=== PATIENT | female | born 1995 | race Caucasian/White ===

== ENCOUNTER 2018-11-11 06:36 | Emergency (ER) | payer MEDICAID, OTHER ==
[~2018-11-11] VITALS: Ht 154.9 cm; Wt 72.6 kg
[~2018-11-11 06:36] MED LIST: CIPR500T78 PO; HYOS0.1216 PO; NORG1TAB15 PO; ONDA-42 SL; PROP1TAB PO
[2018-11-11] MEDS ORDERED: NS IV 1000 ML 1,000 ML IV SCH (07:15)
[2018-11-11] MEDS ORDERED: KETOROLAC 30 MG/ML VIAL IVP PRN (07:15)
[2018-11-11] MEDS ORDERED: ONDANSETRON 4 MG/2 ML (SDV) Z0FRAN IVP ONE (07:15)
--- NOTE | 2018-11-11 07:18 | ED Back Pain ---
General Chief Complaint: Back Problems Stated Complaint: SEVERE KIDNEY PAIN Nursing Triage Note: PT AMB TO ROOM #5 W/O DIFFICULTY. A&OX4. C/O BILAT FLANK PAIN. REPORTS @ APPROX 0430 ON THIS DAY, SHE WAS AWOKEN WITH SYMTPOMS. REPORTS NAUSEA AND BURNING UPON URINATION. DENIES FEVER OR CHILLS. Nursing Sepsis Screen: No Definite Risk Source of Information: Patient Exam Limitations: No Limitations History of Present Illness Date Seen by Provider: Nov 11, 2018 Time Seen by Provider: 07:16 Initial Comments This 23-year-old white female presents with a complaint of severe flank pain that awoke her from sleep this morning at 430. Patient denies fever, chill, hematuria, nausea vomiting or diarrhea, chest pain or shortness of breath, associated headache stiff neck or photophobia, or similar episode in the past. The patient has had frequent urinary tract infections. There is a family history of kidney stones. The patient's pain is poorly localized in the flank, it is severe, and sharp in nature. Allergies and Home Medications Allergies Coded Allergies: Sulfa (Sulfonamide Antibiotics) (Unverified Allergy, Unknown, 10/05/14) pseudoephedrine (Unverified Allergy, Unknown, 10/05/14) Home Medications Ciprofloxacin HCl 500 Mg Tablet, 500 MG PO BID, (Reported) Hyoscyamine Sulfate 0.125 Mg Tab, 1-2 EACH PO Q4HR PRN PRN for CRAMPS Prescribed by: NAKIA OSBORNE on 10/05/14 172 Norgestimate-Ethinyl Estradiol 1 Each Tablet, 1 EACH PO DAILY, (Reported) Ondansetron Hcl 4 Mg Tab, 4 MG SL Q4H FOR NAUSEA AND VOMITING Prescribed by: NAKIA OSBORNE on 10/05/14 172 Propranolol/Hydrochlorothiazid 1 Each Tablet, 1 EACH PO BID, (Reported) Patient Home Medication List Home Medication List Reviewed: Yes Review of Systems Constitutional: No chills, No fever EENTM: No hearing loss, No vision loss Respiratory: No cough Cardiovascular: No chest pain Gastrointestinal: No diarrhea; nausea; No vomiting Genitourinary: see HPI, other (flank pain) : No Musculoskeletal: back pain Skin: No rash Psychiatric/Neurological: No Symptoms Reported Past Ubnogka-Iyfmaf-Xqtwao Hx Past Med/Social Hx: Reviewed Nursing Past Med/Soc Hx Patient Social History Alcohol Use: Denies Use Recreational Drug Use: No Smoking Status: Never a Smoker 2nd Hand Smoke Exposure: No Recent Foreign Travel: No Contact w/Someone Who Travel: No Recent Infectious Disease Expo: No Seasonal Allergies Seasonal Allergies: No Past Medical History Surgeries: No Respiratory: No Cardiac: No Neurological: No Reproductive Disorders: No Sexually Transmitted Disease: No HIV/AIDS: No Gastrointestinal: No Musculoskeletal: No Endocrine: No Cancer: No Psychosocial: No Integumentary: No Blood Disorders: No Adverse Reaction/Blood Tranf: No Physical Exam Vital Signs Vital Signs - First Documented 11/11/18 06:47 Temp 98.8 Pulse 98 Resp 16 B/P (MAP) 118/81 (93) Pulse Ox 98 O2 Delivery Room Air Capillary Refill : Less Than 3 Seconds Height, Weight, BMI Height: 5'1.00" Weight: 160lbs. oz. 72.335778dd; BMI Method:Stated General Appearance: WD/WN, Mild Distress HEENT: Normal ENT Inspection Neck: Normal Inspection Cardiovascular: Regular Rate, Rhythm Respiratory: Lungs Clear Gastrointestinal: Normal Bowel Sounds Extremity: Normal Inspection, Normal Range of Motion Neurologic/Psychiatric: Oriented x3, No Motor/Sensory Deficits, Normal Mood/ Affect Skin: Normal Color, Warm/Dry Progress/Results/Core Measures Results/Orders Lab Results Laboratory Tests Test 11/11/18 07:19 11/11/18 07:20 Range/Units Urine Color YELLOW Urine Clarity SLIGHTLY CLOUDY Urine pH 5 5-9 Urine Specific [place] 1.025 H 1.016-1.022 Urine Protein NEGATIVE NEGATIVE Urine Glucose (UA) NEGATIVE NEGATIVE Urine Ketones 2+ H NEGATIVE Urine Nitrite POSITIVE H NEGATIVE Urine Bilirubin NEGATIVE NEGATIVE Urine Urobilinogen NORMAL NORMAL MG/DL Urine Leukocyte Esterase 1+ H NEGATIVE Urine RBC (Auto) 1+ H NEGATIVE Urine RBC 0-2 /HPF Urine WBC 5-10 H /HPF Urine Squamous Epithelial Cells 0-2 /HPF Urine Crystals NONE /LPF Urine Bacteria LARGE H /HPF Urine Casts NONE /LPF Urine Mucus NEGATIVE /LPF Urine Culture Indicated YES Urine Test NEGATIVE NEGATIVE White Blood Count 5.6 4.3-11.0 10^3/uL Red Blood Count 4.27 L 4.35-5.85 10^6/uL Hemoglobin 13.1 11.5-16.0 G/DL Hematocrit 39 35-52 % Mean Corpuscular Volume 91 80-99 FL Mean Corpuscular Hemoglobin 31 25-34 PG Mean Corpuscular Hemoglobin Concent 34 32-36 G/DL Red Cell Distribution Width 12.5 10.0-14.5 % Platelet Count 225 130-400 10^3/uL Mean Platelet Volume 9.4 7.4-10.4 FL Neutrophils (%) (Auto) 57 42-75 % Lymphocytes (%) (Auto) 24 12-44 % Monocytes (%) (Auto) 16 H 0-12 % Eosinophils (%) (Auto) 3 0-10 % Basophils (%) (Auto) 0 0-10 % Neutrophils # (Auto) 3.2 1.8-7.8 X 10^3 Lymphocytes # (Auto) 1.3 1.0-4.0 X 10^3 Monocytes # (Auto) 0.9 0.0-1.0 X 10^3 Eosinophils # (Auto) 0.2 0.0-0.3 10^3/uL Basophils # (Auto) 0.0 0.0-0.1 10^3/uL Sodium Level 140 135-145 MMOL/L Potassium Level 4.0 3.6-5.0 MMOL/L Chloride Level 106 98-107 MMOL/L Carbon Dioxide Level 20 L 21-32 MMOL/L Anion Gap 14 5-14 MMOL/L Blood Urea Nitrogen 14 7-18 MG/DL Creatinine 0.77 0.60-1.30 MG/DL Estimat Glomerular Filtration Rate > 60 BUN/Creatinine Ratio 18 Glucose Level 95 70-105 MG/DL Calcium Level 9.7 8.5-10.1 MG/DL Corrected Calcium 8.5-10.1 MG/DL Total Bilirubin 0.6 0.1-1.0 MG/DL Aspartate Amino Transf (AST/SGOT) 17 5-34 U/L Alanine Aminotransferase (ALT/SGPT) 18 0-55 U/L Alkaline Phosphatase 113 40-136 U/L Total Protein 7.5 6.4-8.2 GM/DL Albumin 4.6 H 3.2-4.5 GM/DL Lipase 35 8-78 U/L My Orders Orders - PARADISE WEBSTER MD Cbc With Automated Diff (11/11/18 07:05) Ua Culture If Indicated (11/11/18 07:05) Comprehensive Metabolic Panel (11/11/18 07:05) Lipase (11/11/18 07:05) Ct Abd/Pelvis Wo(Kidney Stone) (11/11/18 07:05) Ns Iv 1000 Ml (Sodium Chloride 0.9%) (11/11/18 07:15) Ondansetron Injection (Zofran Injectio (11/11/18 07:15) Ketorolac Injection (Toradol Injection) (11/11/18 07:15) Hcg,Qualitative Urine (11/11/18 07:20) Urine Culture (11/11/18 07:19) Us Non Ob Transvaginal [id number] (11/11/18 08:16) Medications Given in ED Current Medications Medications Dose Ordered Sig/Mendoza Route Start Time Stop Time Status Last Admin Dose Admin Ketorolac Tromethamine 30 mg Q6H PRN IVP 11/11/18 07:15 11/16/18 07:14 11/11/18 07:20 30 MG Ondansetron HCl 4 mg ONCE ONCE IVP 11/11/18 07:15 11/11/18 07:16 DC 11/11/18 07:20 4 MG Vital Signs/I&O 11/11/18 06:47 Temp 98.8 Pulse 98 Resp 16 B/P (MAP) 118/81 (93) Pulse Ox 98 O2 Delivery Room Air Blood Pressure Mean: 93 Progress Progress Note : Time: 09:08 Progress Note The patient's workup demonstrated a large ovarian cyst. There was no evidence of kidney stone or urinary tract infection. Ultrasound demonstrated a large right ovarian cyst. Patient's pain was significantly improved with IV Toradol. Her nausea was treated with Zofran. 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 I asked her to return in the interim if she had a problems or questions. Departure Impression Primary Impression: Ovarian cyst Qualified Codes: N83.201 - Unspecified ovarian cyst, right side Disposition: 01 HOME, SELF-CARE Condition: Improved Departure-Patient Inst. Decision time for Depature: 09:09 Referrals: WADE HERRERA MD (PCP) Primary Care Physician Patient Instructions: Ovarian Cyst (DC) Add. Discharge Instructions: Toradol for pain. Zofran for nausea. Follow-up with your caregivers on Wednesday for further evaluation. Return if any problems or questions. All discharge instructions reviewed with patient and/or family. Voiced understanding. Scripts Ondansetron (Ondansetron Odt) 4 Mg Tab.rapdis 4 MG PO every 3 hours for Nausea for 7 Days, #20 TAB Prov: PARADISE WEBSTER MD 11/11/18 Ketorolac Tromethamine (Ketorolac Tromethamine) 10 Mg Tablet 10 MG PO q6 PRN for PAIN-MODERATE TO SEVERE, #20 TAB Prov: PARADISE WEBSTER MD 11/11/18 PARADISE WEBSTER MD Nov 11, 2018 07:18
[2018-11-11 07:31] LABS: BASOPHILS % (AUTO) 0 % (0-10); EOSINOPHILS # (AUTO) 0.2 10^3/uL (0.0-0.3); EOSINOPHILS % (AUTO) 3 % (0-10); HEMATOCRIT 39 % (35-52); HEMOGLOBIN 13.1 G/DL (11.5-16.0); LYMPHOCYTES # (AUTO) 1.3 X 10^3 (1.0-4.0); LYMPHOCYTES % (AUTO) 24 % (12-44); MEAN CORPUSCULAR HEMOGLOBIN 31 PG (25-34); MEAN CORPUSCULAR HGB CONC 34 G/DL (32-36); MEAN CORPUSCULAR VOLUME 91 FL (80-99); MEAN PLATELET VOLUME 9.4 FL (7.4-10.4); MONOCYTES # (AUTO) 0.9 X 10^3 (0.0-1.0); MONOCYTES % (AUTO) 16 % (0-12); NEUTROPHILS # (AUTO) 3.2 X 10^3 (1.8-7.8); NEUTROPHILS % (AUTO) 57 % (42-75); PLATELET COUNT 225 10^3/uL (130-400); RED CELL DISTRIBUTION WIDTH 12.5 % (10.0-14.5); WHITE BLOOD COUNT 5.6 10^3/uL (4.3-11.0)
[2018-11-11 07:51] LABS: ALANINE AMINOTRANSFERASE 18 U/L (0-55); ALBUMIN 4.6 GM/DL (3.2-4.5); ALKALINE PHOSPHATASE 113 U/L (40-136); BILIRUBIN,TOTAL 0.6 MG/DL (0.1-1.0); BUN/CREATININE RATIO 18; CALCIUM 9.7 MG/DL (8.5-10.1); CARBON DIOXIDE 20 MMOL/L (21-32); CHLORIDE 106 MMOL/L (98-107); CREATININE SERUM 0.77 MG/DL (0.60-1.30); GFR ESTIMATED > 60; GLUCOSE 95 MG/DL (70-105); LIPASE 35 U/L (8-78); SODIUM 140 MMOL/L (135-145); TOTAL PROTEIN 7.5 GM/DL (6.4-8.2)
--- NOTE | 2018-11-11 07:58 | Diagnostic Imaging Report ---
PROCEDURE: CT urinary tract, rule out kidney stone. TECHNIQUE: Multiple contiguous axial images were obtained through the abdomen and pelvis without the use of intravenous contrast. Auto Exposure Controls were utilized during the CT exam to meet ALARA standards for radiation dose reduction. INDICATION: Bilateral flank pain, burning on urination. COMPARISON: 10/05/2014. FINDINGS: The lung bases are clear. The heart is normal in size. The liver demonstrates no focal lesions. The spleen appears normal. The pancreas is normal. The adrenal glands are normal. The kidneys demonstrate no focal calculi. No hydronephrosis is seen. The bowel loops are nondistended without evidence of obstruction. The appendix appears normal. There are a few mildly prominent lymph nodes in the right lower quadrant of the abdomen. There is moderate stool in the colon. There is a multiseptated cystic mass in the right pelvis measuring 6.7 x 6.3 cm in size. This is most likely ovarian in origin. No acute osseous abnormality is seen. No free fluid or free air seen. IMPRESSION: 1. Multiseptated cystic mass in the right pelvis, most likely ovarian in origin. This could represent a tubo-ovarian abscess or possibly a neoplastic process. Please correlate with clinical findings. Ultrasound may be of benefit for further characterization. 2. Moderate stool in the colon, please correlate with a history of constipation. Dictated by: Dictated on workstation # [id number]
[2018-11-11 08:10] LABS: BILIRUBIN,URINE NEGATIVE (NEGATIVE); CLARITY,URINE SLIGHTLY CLOUDY; COLOR,URINE YELLOW; GLUCOSE, URINE (UA) NEGATIVE (NEGATIVE); KETONES,URINE 2+ (NEGATIVE); LEUKOCYTE ESTERASE ,URINE 1+ (NEGATIVE); NITRITE,URINE POSITIVE (NEGATIVE); PH,URINE 5 (5-9); PROTEIN,URINE NEGATIVE (NEGATIVE); UROBILINOGEN,URINE NORMAL (NORMAL)
[2018-11-11 08:19] LABS: BACTERIA,URINE LARGE /HPF; RBC,URINE 0-2 /HPF; SQUAMOUS EPITHELIAL CELL,UR 0-2 /HPF
[2018-11-11] MEDS ORDERED: KETO10TA PO (09:14)
[2018-11-11] MEDS ORDERED: ONDA4TAB11 PO (09:14)
--- NOTE | 2018-11-11 09:34 | Diagnostic Imaging Report ---
INDICATION: Bilateral flank pain. Burning with urination. COMPARISON: CT abdomen and pelvis from earlier the same day TECHNIQUE: Transvaginal sonogram was performed. FINDINGS: The uterus is anteverted and measures 8.3 cm in length x 5.3 cm in AP dimension x 5.9 cm transversely. No focal myometrial mass-type lesions are seen. Endometrial stripe is diffusely hyperechoic and measures within normal limits for size at 8 mm in thickness. Visualized portions of the cervix are unremarkable. Left ovary measures 3.1 x 2.8 x 1.3 cm and demonstrates multiple small anechoic follicles. Right kidney in contrast measures 6.5 x 6.8 x 5.9 cm. Multiple anechoic cysts and follicles are identified involving the right ovary. Largest measures 4.2 x 2.5 x 4.4 cm Additionally, there is a complex heterogeneous right ovarian lesion that measures 2.7 x 3.9 x 3 cm. Color flow images failed to show evidence of internal vascularity. No adnexal masses are seen. There is no free fluid. IMPRESSION: 1. Complex right ovarian lesion, which is felt to most likely represent hemorrhagic cyst. Followup in 2 cycles is recommended to ensure adequate interval resolution. 2. Multiple other benign anechoic right ovarian cysts are also noted. 3. Normal appearance of the uterus and left ovary. Dictated by: Dictated on workstation # [id number]
[2018-11-11 09:49] VITALS: BP 110/71
--- OUTSIDE RECORDS SUMMARY | 2018-11-11 11:24 | XMS REPORT | Continuity of Care Document ---
Author Organization Unknown Address Unknown Allergies Active Description Code Type Severity Reaction Onset Reported/Identified Relationship to Patient Clinical Status Yes pseudoephedrine [id number] Drug Allergy Unknown N/A 10/05/2014 Yes Sulfa (Sulfonamide Antibiotics) [id number] Drug Allergy Unknown N/A 2014 Medications There is no data. Problems Date Dx Coded Attending Type Code Diagnosis Diagnosed By 10/05/2014 Ot 558.9 NONINF GASTROENTERIT NEC 10/05/2014 Ot 787.03 VOMITING ALONE Procedures There is no data. Results Test Result Range Urine beta human chorionic gonadotropin (hCG) measurement - 11/11/18 07:19 Urine beta human chorionic gonadotropin (hCG) measurement NEGATIVE NEGATIVE Complete blood count (CBC) with automated white blood cell (WBC) differential - 11/11/18 07:20 Blood leukocytes automated count (number/volume) 5.6 10*3/uL 4.3-11.0 Blood erythrocytes automated count (number/volume) 4.27 10*6/uL 4.35-5.85 Venous blood hemoglobin measurement (mass/volume) 13.1 g/dL 11.5-16.0 Blood hematocrit (volume fraction) 39 % 35-52 Automated erythrocyte mean corpuscular volume 91 [foz_us] 80-99 Automated erythrocyte mean corpuscular hemoglobin (mass per erythrocyte) 31 pg 25-34 Automated erythrocyte mean corpuscular hemoglobin concentration measurement ( mass/volume) 34 g/dL 32-36 Automated erythrocyte distribution width ratio 12.5 % 10.0-14.5 Automated blood platelet count (count/volume) 225 10*3/uL 130-400 Automated blood platelet mean volume measurement 9.4 [foz_us] 7.4-10.4 Automated blood neutrophils/100 leukocytes 57 % 42-75 Automated blood lymphocytes/100 leukocytes 24 % 12-44 Blood monocytes/100 leukocytes 16 % 0-12 Automated blood eosinophils/100 leukocytes 3 % 0-10 Automated blood basophils/100 leukocytes 0 % 0-10 Blood neutrophils automated count (number/volume) 3.2 10*3 1.8-7.8 Blood lymphocytes automated count (number/volume) 1.3 10*3 1.0-4.0 Blood monocytes automated count (number/volume) 0.9 10*3 0.0-1.0 Automated eosinophil count 0.2 10*3/uL 0.0-0.3 Automated blood basophil count (count/volume) 0.0 10*3/uL 0.0-0.1 Comprehensive metabolic panel - 11/11/18 07:20 Serum or plasma sodium measurement (moles/volume) 140 mmol/L 135-145 Serum or plasma potassium measurement (moles/volume) 4.0 mmol/L 3.6-5.0 Serum or plasma chloride measurement (moles/volume) 106 mmol/L 98-107 Carbon dioxide 20 mmol/L 21-32 Serum or plasma anion gap determination (moles/volume) 14 mmol/L 5-14 Serum or plasma urea nitrogen measurement (mass/volume) 14 mg/dL 7-18 Serum or plasma creatinine measurement (mass/volume) 0.77 mg/dL 0.60-1.30 Serum or plasma urea nitrogen/creatinine mass ratio 18 NRG Serum or plasma creatinine measurement with calculation of estimated glomerular filtration rate > NRG Serum or plasma glucose measurement (mass/volume) 95 mg/dL 70-105 Serum or plasma calcium measurement (mass/volume) 9.7 mg/dL 8.5-10.1 Serum or plasma total bilirubin measurement (mass/volume) 0.6 mg/dL 0.1-1.0 Serum or plasma alkaline phosphatase measurement (enzymatic activity/volume) 113 U/L 40-136 Serum or plasma aspartate aminotransferase measurement (enzymatic activity/ volume) 17 U/L 5-34 Serum or plasma alanine aminotransferase measurement (enzymatic activity/volume ) 18 U/L 0-55 Serum or plasma protein measurement (mass/volume) 7.5 g/dL 6.4-8.2 Serum or plasma albumin measurement (mass/volume) 4.6 g/dL 3.2-4.5 Lipase - 11/11/18 07:20 Lipase 35 U/L 8-78 Encounters ACCT No. Visit Date/Time Discharge Status Pt. Type Provider Facility Loc./Unit Complaint [id number] 10/24/2014 10:15:28 10/24/2014 23:59:59 CLS Outpatient Latia Frye [id number] 11/11/2018 06:39:00 ACT Emergency ELEANOR GONZALEZ, PARAD[facility] ER SEVERE KIDNEY PAIN [id number] 10/05/2014 15:49:00 Document Registration
== END 2018-11-11 09:40 | disposition home or self-care (01) ==
LOC: EDUNIT# 06:36 → ER 06:39
DX: N83.201 Unspecified ovarian cyst, right side (principal); Z88.2 Allergy status to sulfonamides; Z88.8 Allergy status to other drugs, medicaments and biological substances
CPT/HCPCS: 36415; 74176; 76830; 80053; 81000; 83690; 84703; 85025; 87077; 87088; 87186

== ENCOUNTER 2018-12-07 03:41 | Emergency (ER) | payer MEDICAID ==
[~2018-12-07] VITALS: Ht 154.9 cm; Wt 72.6 kg
[~2018-12-07 03:41] MED LIST changes: +CEFU250T80 PO; +KETO10TA PO; +ONDA4TAB11 PO
--- OUTSIDE RECORDS SUMMARY | 2018-12-07 03:46 | XMS REPORT | Continuity of Care Document ---
Author Organization Unknown Address Unknown Allergies Active Description Code Type Severity Reaction Onset Reported/Identified Relationship to Patient Clinical Status Yes pseudoephedrine [id number] Drug Allergy Unknown N/A 10/05/2014 Yes Sulfa (Sulfonamide Antibiotics) [id number] Drug Allergy Unknown N/A 2014 Medications There is no data. Problems Date Dx Coded Attending Type Code Diagnosis Diagnosed By 10/05/2014 Ot 558.9 NONINF GASTROENTERIT NEC 10/05/2014 Ot 787.03 VOMITING ALONE Procedures There is no data. Results Test Result Range Urine beta human chorionic gonadotropin (hCG) measurement - 11/11/18 07:19 Urine beta human chorionic gonadotropin (hCG) measurement NEGATIVE NEGATIVE Complete urinalysis with reflex to culture - 11/11/18 07:19 Urine color determination YELLOW NRG Urine clarity determination SLIGHTLY CLOUDY NRG Urine pH measurement by test strip 5 5-9 Specific gravity of urine by test strip 1.025 1.016- 1.022 Urine protein assay by test strip, semi-quantitative NEGATIVE NEGATIVE Urine glucose detection by automated test strip NEGATIVE NEGATIVE Erythrocytes detection in urine sediment by light microscopy 1+ NEGATIVE Urine ketones detection by automated test strip 2+ NEGATIVE Urine nitrite detection by test strip POSITIVE NEGATIVE Urine total bilirubin detection by test strip NEGATIVE NEGATIVE Urine urobilinogen measurement by automated test strip (mass/volume) NORMAL NORMAL Urine leukocyte esterase detection by dipstick 1+ NEGATIVE Automated urine sediment erythrocyte count by microscopy (number/high power field) [HPF] NRG Automated urine sediment leukocyte count by microscopy (number/high power field ) [HPF] NRG Bacteria detection in urine sediment by light microscopy LARGE NRG Squamous epithelial cells detection in urine sediment by light microscopy 0-2 NRG Crystals detection in urine sediment by light microscopy NONE NRG Casts detection in urine sediment by light microscopy NONE NRG Mucus detection in urine sediment by light microscopy NEGATIVE NRG Complete urinalysis with reflex to culture YES NRG Bacterial urine culture - 11/11/18 07:19 Bacterial urine culture [id number] NRG COLONY COUNT >100,000/ML NRG FTX;REPORTABLE SUSCEPTIBILITY REPORT D 11/13 09:05 NRG FREE TEXT ENTRY 3 ORGANISM ID REPORT D 11/12 14:05 NRG RML Sensitivity Panel - 11/11/18 07:19 Gentamicin susceptibility test by minimum inhibitory concentration < = NRG Trimethoprim/sulfamethoxazole susceptibility test by minimum inhibitoryconcentration <= NRG Levofloxacin susceptibility test by minimum inhibitory concentration <= NRG Ampicillin susceptibility test by minimum inhibitory concentration < = NRG Cefazolin susceptibility test by minimum inhibitory concentration 2 NRG Ceftriaxone susceptibility test by minimum inhibitory concentration <= NRG Ciprofloxacin susceptibility test by minimum inhibitory concentration <= NRG Meropenem susceptibility test by minimum inhibitory concentration < = NRG Nitrofurantoin susceptibility test by minimum inhibitory concentration <= NRG Amoxicillin and clavulanate potassium susc JASON <= NRG Complete blood count (CBC) with automated white [...] Status Pt. Type Provider Facility Loc./Unit Complaint [id number] 10/24/2014 10:15:28 10/24/2014 23:59:59 CLS Outpatient Latia Frye [id number] 11/11/2018 06:39:00 11/11/2018 09:40:00 DIS Emergency ELEANOR GONZALEZ, PARADISE [facility] SEVERE KIDNEY PAIN [id number] 10/05/2014 15:49:00 Document Registration
[2018-12-07] MEDS ORDERED: LACTATED RINGERS 1,000 ML IV ONE (03:57)
[2018-12-07] MEDS ORDERED: ONDANSETRON 4 MG/2 ML (SDV) Z0FRAN IVP ONE (04:00)
[2018-12-07 04:08] LABS: BASOPHILS % (AUTO) 0 % (0-10); EOSINOPHILS # (AUTO) 0.4 10^3/uL (0.0-0.3); EOSINOPHILS % (AUTO) 5 % (0-10); HEMATOCRIT 37 % (35-52); HEMOGLOBIN 12.4 G/DL (11.5-16.0); LYMPHOCYTES # (AUTO) 2.7 X 10^3 (1.0-4.0); LYMPHOCYTES % (AUTO) 35 % (12-44); MEAN CORPUSCULAR HEMOGLOBIN 30 PG (25-34); MEAN CORPUSCULAR HGB CONC 33 G/DL (32-36); MEAN CORPUSCULAR VOLUME 91 FL (80-99); MEAN PLATELET VOLUME 9.6 FL (7.4-10.4); MONOCYTES # (AUTO) 0.7 X 10^3 (0.0-1.0); MONOCYTES % (AUTO) 9 % (0-12); NEUTROPHILS # (AUTO) 3.9 X 10^3 (1.8-7.8); NEUTROPHILS % (AUTO) 51 % (42-75); PLATELET COUNT 215 10^3/uL (130-400); RED CELL DISTRIBUTION WIDTH 12.2 % (10.0-14.5); WHITE BLOOD COUNT 7.6 10^3/uL (4.3-11.0)
--- NOTE | 2018-12-07 04:21 | NUR ---
PT DECLINED TORADOL INJECTION AT THIS TIME. REPORTS PAIN GONE.
--- NOTE | 2018-12-07 04:24 | ED Abdominal Pain ---
General Chief Complaint: Abdominal/GI Problems Stated Complaint: RT SIDE PAIN Nursing Triage Note: RLQ ABDOMINAL PAIN, N/V. KNOWN OVARIAN CYST. Sepsis Screen: No Definite Risk Source of Information: Patient History of Present Illness Date Seen by Provider: December 07, 2018 Time Seen by Provider: 03:53 Initial Comments PT ARRIVES VIA POV FROM HOME STATES SHE WOKE UP AT 0315 WITH "EXCRUCIATING PAIN ON MY RIGHT SIDE" PAIN IS IN RLQ AND RADIATES TO RIGHT THIGH C/O NAUSEA, VOMITED X 1 NO URINARY SYMPTOMS NO KNOW FEVER LMP 11/15/18. NORMAL. NO CONTROL SEEN HERE 11/11/18 FOR SIMILAR PAIN, BUT WAS MOSTLY IN FLANKS--RIGHT >> LEFT FLANK. HAD ULTRASOUND AND CT, AND WAS DX WITH RIGHT OVARIAN MASS AND CYSTS. PT HAS AN APPOINTMENT WITH HER VIDEO GAME TESTER, DR. HERRERA, IN [place], TODAY FOR FOLLOW UP OF THIS COMPLAINT PT HAS NOT TAKEN ANYTHING FOR PAIN PT LATER STATES THAT SHE HAS BOTH PAIN MEDICATION AND NAUSEA MEDICATION BUT DID NOT TAKE ANY. PCP: NONE VIDEO GAME TESTER: DR. HERRERA, [place] Allergies and Home Medications Allergies Coded Allergies: Sulfa (Sulfonamide Antibiotics) (Unverified Allergy, Unknown, 10/05/14) pseudoephedrine (Unverified Allergy, Unknown, 10/05/14) Home Medications Cefuroxime Axetil 250 Mg Tablet, 250 MG PO BID, (Reported) Ciprofloxacin HCl 500 Mg Tablet, 500 MG PO BID, (Reported) Hyoscyamine Sulfate 0.125 Mg Tab, 1-2 EACH PO Q4HR PRN PRN for CRAMPS Prescribed by: NAKIA OSBORNE on 10/05/14 172 Ketorolac Tromethamine 10 Mg Tablet, 10 MG PO q6 PRN for PAIN-MODERATE TO SEVERE Prescribed by: PARADISE WEBSTER MD on 11/11/18913 Norgestimate-Ethinyl Estradiol 1 Each Tablet, 1 EACH PO DAILY, (Reported) Ondansetron 4 Mg Tab.rapdis, 4 MG PO every 3 hours Prescribed by: PARADISE WEBSTER MD on 11/11/18913 Ondansetron Hcl 4 Mg Tab, 4 MG SL Q4H FOR NAUSEA AND VOMITING Prescribed by: NAKIA OSBORNE on 10/05/14 172 Propranolol/Hydrochlorothiazid 1 Each Tablet, 1 EACH PO BID, (Reported) Patient Home Medication List Home Medication List Reviewed: Yes Review of Systems Review of Systems Constitutional: no symptoms reported Respiratory: No Symptoms Reported Cardiovascular: No Symptoms Reported Gastrointestinal: See HPI, Abdominal Pain; Denies Constipated, Denies Diarrhea ; Nausea, Vomiting Genitourinary: No Symptoms Reported Musculoskeletal: no symptoms reported Skin: no symptoms reported Psychiatric/Neurological: No Symptoms Reported Endocrine: No Symptoms Reported Hematologic/Lymphatic: No Symptoms Reported Past Mnaoyib-Ymsgen-Unwzht Hx Patient Social History Alcohol Use: Denies Use Recreational Drug Use: No Smoking Status: Never a Smoker 2nd Hand Smoke Exposure: No Recent Foreign Travel: No Contact w/Someone Who Travel: No Recent Infectious Disease Expo: No Recent Hopitalizations: No Immunizations Up To Date Tetanus Booster (TDap): Unknown Seasonal Allergies Seasonal Allergies: No Past Medical History Surgeries: Yes Section Respiratory: No Cardiac: No Neurological: No : No Last Menstrual Period: Nov 15, 2018 Reproductive Disorders: No Female Reproductive Disorders: Ovarian Cyst Sexually Transmitted Disease: No HIV/AIDS: No Genitourinary: No Gastrointestinal: No Musculoskeletal: No Endocrine: No HEENT: No Cancer: No Psychosocial: No Integumentary: No Blood Disorders: No Adverse Reaction/Blood Tranf: No Physical Exam Vital Signs Vital Signs - First Documented 12/07/18 03:45 Temp 97.1 Pulse 82 Resp 22 B/P (MAP) 113/55 (74) Pulse Ox 99 O2 Delivery Room Air Capillary Refill : Less Than 3 Seconds Height/Weight/BMI Height: 5'1.00" Weight: 160lbs. oz. 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, no motor/sensory deficits, alert, oriented x 3 Skin: normal color, warm/dry Progress/Results/Core Measures Results/Orders Lab Results Laboratory Tests Test 12/07/18 04:00 12/07/18 04:37 Range/Units White Blood Count 7.6 4.3-11.0 10^3/uL Red Blood Count 4.10 L 4.35-5.85 10^6/uL Hemoglobin 12.4 11.5-16.0 G/DL Hematocrit 37 35-52 % Mean Corpuscular Volume 91 80-99 FL Mean Corpuscular Hemoglobin 30 25-34 PG Mean Corpuscular Hemoglobin Concent 33 32-36 G/DL Red Cell Distribution Width 12.2 10.0-14.5 % Platelet Count 215 130-400 10^3/uL Mean Platelet Volume 9.6 7.4-10.4 FL Neutrophils (%) (Auto) 51 42-75 % Lymphocytes (%) (Auto) 35 12-44 % Monocytes (%) (Auto) 9 0-12 % Eosinophils (%) (Auto) 5 0-10 % Basophils (%) (Auto) 0 0-10 % Neutrophils # (Auto) 3.9 1.8-7.8 X 10^3 Lymphocytes # (Auto) 2.7 1.0-4.0 X 10^3 Monocytes # (Auto) 0.7 0.0-1.0 X 10^3 Eosinophils # (Auto) 0.4 H 0.0-0.3 10^3/uL Basophils # (Auto) 0.0 0.0-0.1 10^3/uL Sodium Level 142 135-145 MMOL/L Potassium Level 3.4 L 3.6-5.0 MMOL/L Chloride Level 109 H 98-107 MMOL/L Carbon Dioxide Level 21 21-32 MMOL/L Anion Gap 12 5-14 MMOL/L Blood Urea Nitrogen 12 7-18 MG/DL Creatinine 0.74 0.60-1.30 MG/DL Estimat Glomerular Filtration Rate > 60 BUN/Creatinine Ratio 16 Glucose Level 113 H 70-105 MG/DL Calcium Level 9.6 8.5-10.1 MG/DL Corrected Calcium 9.3 8.5-10.1 MG/DL Total Bilirubin 0.3 0.1-1.0 MG/DL Aspartate Amino Transf (AST/SGOT) 14 5-34 U/L Alanine Aminotransferase (ALT/SGPT) 13 0-55 U/L Alkaline Phosphatase 95 40-136 U/L Total Protein 6.9 6.4-8.2 GM/DL Albumin 4.4 3.2-4.5 GM/DL Amylase Level 44 25-125 U/L Lipase 37 8-78 U/L Serum Test, Qualitative NEGATIVE NEGATIVE Urine Color YELLOW Urine Clarity CLEAR Urine pH 6 5-9 Urine Specific Spring 1.025 H 1.016-1.022 Urine Protein NEGATIVE NEGATIVE Urine Glucose (UA) NEGATIVE NEGATIVE Urine Ketones NEGATIVE NEGATIVE Urine Nitrite NEGATIVE NEGATIVE Urine Bilirubin NEGATIVE NEGATIVE Urine Urobilinogen NORMAL NORMAL MG/DL Urine Leukocyte Esterase 1+ H NEGATIVE Urine RBC (Auto) NEGATIVE NEGATIVE Urine RBC NONE /HPF Urine WBC RARE /HPF Urine Squamous Epithelial Cells 10-25 H /HPF Urine Crystals NONE /LPF Urine Bacteria NEGATIVE /HPF Urine Casts NONE /LPF Urine Mucus LARGE H /LPF Urine Culture Indicated NO My Orders Orders - ALBERTINA CLINTON DO Ed Iv/Invasive Line Start (12/07/18 03:57) Ct Abd/Pelvis Wo(Kidney Stone) (12/07/18 03:57) Abdomen, Flat & Upright/Decub (12/07/18 03:57) Amylase (12/07/18 03:57) Cbc With Automated Diff (12/07/18 03:57) Comprehensive Metabolic Panel (12/07/18 03:57) Hcg,Qualitative Serum (12/07/18 03:57) Lipase (12/07/18 03:57) Ua Culture If Indicated (12/07/18 03:57) Ed Iv/Invasive Line Start (12/07/18 03:57) Lactated Ringers (Lr 1000 Ml Iv Solution (12/07/18 03:57) Ondansetron Injection (Zofran Injectio (12/07/18 04:00) Ketorolac Injection (Toradol Injection) (12/07/18 04:30) Medications Given in ED Current Medications Medications Dose Ordered Sig/Mendoza Route Start Time Stop Time Status Last Admin Dose Admin Lactated Ringer's 1,000 ml @ 0 mls/hr Q0M ONCE IV 12/07/18 03:57 12/07/18 03:59 DC 12/07/18 04:15 0 MLS/HR Ondansetron HCl 4 mg ONCE ONCE IVP 12/07/18 04:00 12/07/18 04:01 DC 12/07/18 04:15 4 MG Vital Signs/I&O 12/07/18 03:45 Temp 97.1 Pulse 82 Resp 22 B/P (MAP) 113/55 (74) Pulse Ox 99 O2 Delivery Room Air Blood Pressure Mean: 74 Progress Progress Note : Progress Note 0420--PAIN IS COMPLETELY GONE NOW, SPONTANEOUSLY WITHOUT ANY MEDICATIONS, IS NAUSEA. Diagnostic Imaging Comments ABDOMEN XRAYS--NO ACUTE PROCESS, LARGE AMOUNT OF STOOL IN RIGHT COLON, LARGE AMOUNT OF GAS IN LEFT COLON. PENDING RADIOLOGIST REVEW CT ABDOMEN/PELVIS--SIGNIFICANT INCREASE IN SIZE OF CYSTIC MASS, ANTERIOR TO UTERUS. PER [facility] VIA FAX @ [phone] Reviewed: Reviewed by Me Departure Impression Primary Impression: Right ovarian cyst Disposition: HOME, SELF-CARE Condition: Improved Departure-Patient Inst. Referrals: WADE HERRERA MD (PCP/Family) Primary Care Physician Patient Instructions: Ovarian Cyst (DC) Add. Discharge Instructions: TAKE YOUR PAIN MEDICATION AND NAUSEA MEDICATION PRESCRIBED KEEP YOUR APPOINTMENT WITH DR. HERRERA TODAY. All discharge instructions reviewed with patient and/or family. Voiced understanding. ALBERTINA CLINTON DO December 07, 2018 04:24
[2018-12-07 04:29] LABS: ALANINE AMINOTRANSFERASE 13 U/L (0-55); ALBUMIN 4.4 GM/DL (3.2-4.5); ALKALINE PHOSPHATASE 95 U/L (40-136); AMYLASE 44 U/L (25-125); BILIRUBIN,TOTAL 0.3 MG/DL (0.1-1.0); BUN/CREATININE RATIO 16; CALCIUM 9.6 MG/DL (8.5-10.1); CARBON DIOXIDE 21 MMOL/L (21-32); CHLORIDE 109 MMOL/L (98-107); CREATININE SERUM 0.74 MG/DL (0.60-1.30); GFR ESTIMATED > 60; GLUCOSE 113 MG/DL (70-105); LIPASE 37 U/L (8-78); POTASSIUM 3.4 MMOL/L (3.6-5.0); SODIUM 142 MMOL/L (135-145); TOTAL PROTEIN 6.9 GM/DL (6.4-8.2)
[2018-12-07] MEDS ORDERED: KETOROLAC 30 MG/ML VIAL IVP ONE (04:30)
[2018-12-07 04:50] LABS: BILIRUBIN,URINE NEGATIVE (NEGATIVE); CLARITY,URINE CLEAR; COLOR,URINE YELLOW; GLUCOSE, URINE (UA) NEGATIVE (NEGATIVE); KETONES,URINE NEGATIVE (NEGATIVE); LEUKOCYTE ESTERASE ,URINE 1+ (NEGATIVE); NITRITE,URINE NEGATIVE (NEGATIVE); PH,URINE 6 (5-9); PROTEIN,URINE NEGATIVE (NEGATIVE); UROBILINOGEN,URINE NORMAL (NORMAL)
[2018-12-07 04:57] LABS: BACTERIA,URINE NEGATIVE /HPF; WBC,URINE RARE /HPF
--- NOTE | 2018-12-07 05:06 | NUR ---
PT BACK FROM CT, DENIES NEEDS AT THIS TIME.
[2018-12-07 05:25] VITALS: BP 120/72
--- NOTE | 2018-12-07 06:38 | Diagnostic Imaging Report ---
Indication: Right lower quadrant pain. Findings: KUB shows moderate amount of stool in the ascending and transverse colon. There is some gas with small amount of stool in the distal colon. There is no organomegaly. No pathologic calcification. No bony abnormalities. Impression: Moderate stool burden as described on the right side of the colon. Dictated by: Dictated on workstation # [id number]
--- NOTE | 2018-12-07 06:42 | Diagnostic Imaging Report ---
PROCEDURE: CT urinary tract, rule out kidney stone. TECHNIQUE: Multiple contiguous axial images were obtained through the abdomen and pelvis without the use of intravenous contrast. Auto Exposure Controls were utilized during the CT exam to meet ALARA standards for radiation dose reduction. INDICATION: Followup of ovarian mass. Comparison with 11/11/2018. FINDINGS: The complex septated mass in the pelvis has increased in size now measuring approximately 10 x 7 cm. This does appear slightly more cystic on current exam. There is no free fluid or free air. There are multiple mesenteric lymph nodes along the terminal ileum and cecum largest measuring approximately 1.3 cm. Bowel gas pattern appears normal. The abdominal organs otherwise are unchanged. Lung bases are clear. IMPRESSION: 1. Increasing size of cystic mass in the pelvis. Cystadenoma or cystadenocarcinoma is in the differential. 2. There are multiple lymph nodes in the mesentery surrounding the terminal ileum and cecum which are stable. Dictated by: Dictated on workstation # [id number]
== END 2018-12-07 05:26 | disposition home or self-care (01) ==
LOC: EDUNIT# 03:41 → ER 03:43
DX: N83.201 Unspecified ovarian cyst, right side (principal); Z88.2 Allergy status to sulfonamides; Z88.8 Allergy status to other drugs, medicaments and biological substances; Z98.890 Other specified postprocedural states; Z87.448 Personal history of other diseases of urinary system
CPT/HCPCS: 36415; 74019; 74176; 80053; 81000; 82150; 83690; 84703; 85025; 96361; 96374